=== PATIENT | female | born 1960 | race Caucasian/White ===

== ENCOUNTER → 2017-01-14 | Outpatient (CLI) | payer OTHER | LOC: M OUTALCOH 09:56 | PROVIDERS: ATTEND Psychiatry & Neurology Psychiatry | DX: F10.20 Alcohol dependence, uncomplicated (principal) ==

== ENCOUNTER 2017-02-04 08:30 | Outpatient (RCR) | payer OTHER | END 2017-02-07 | LOC: M OUTALCOH 08:30 | PROVIDERS: ATTEND Psychiatry & Neurology Psychiatry | DX: F17.200 Nicotine dependence, unspecified, uncomplicated (principal); F10.20 Alcohol dependence, uncomplicated ==

== ENCOUNTER 2017-03-04 16:00 | Outpatient (RCR) | payer OTHER | END 2017-03-09 | LOC: M OUTALCOH 16:00 | PROVIDERS: ATTEND Psychiatry & Neurology Psychiatry | DX: F17.200 Nicotine dependence, unspecified, uncomplicated (principal); F10.20 Alcohol dependence, uncomplicated ==

== ENCOUNTER 2017-04-01 16:00 | Outpatient (RCR) | payer OTHER | END 2017-04-09 | LOC: M OUTALCOH 16:00 | PROVIDERS: ATTEND Psychiatry & Neurology Psychiatry | DX: F17.200 Nicotine dependence, unspecified, uncomplicated (principal); F10.20 Alcohol dependence, uncomplicated ==

== ENCOUNTER 2017-05-07 15:00 | Outpatient (RCR) | payer OTHER | END 2017-05-09 | LOC: M OUTALCOH 15:00 | PROVIDERS: ATTEND Psychiatry & Neurology Psychiatry | DX: F17.200 Nicotine dependence, unspecified, uncomplicated (principal); F10.20 Alcohol dependence, uncomplicated ==

== ENCOUNTER → 2017-05-20 | Outpatient (REF) | payer OTHER ==
[2017-05-20 16:58] LABS: MEAN CORPUSCULAR HGB CONC 34.7 g/dl (32.0-36.5); MEAN CORPUSCULAR VOLUME 95.1 fl (80.0-96.0); WHITE BLOOD COUNT 3.7 K/mm3 (4.0-10.0)
[2017-05-20 16:59] LABS: ALBUMIN 4.3 GM/DL (3.2-5.2); ALBUMIN/GLOBULIN RATIO 1.65 (1.00-1.93); ALKALINE PHOSPHATASE 67 U/L (45-117); ALT/SGPT 24 U/L (12-78); ANION GAP 7 MEQ/L (8-16); AST/SGOT 11 U/L (15-37); BILIRUBIN,TOTAL 0.5 MG/DL (0.2-1.0); BLOOD UREA NITROGEN 18 MG/DL (7-18); CALCIUM LEVEL 9.5 MG/DL (8.5-10.1); CARBON DIOXIDE LEVEL 29 MEQ/L (21-32); CHLORIDE LEVEL 106 MEQ/L (98-107); CHOLESTEROL LEVEL 239 MG/DL (<200); CREATININE FOR GFR 0.82 MG/DL (0.55-1.02); GLOMERULAR FILTRATION RATE > 60.0 (>51); GLUCOSE, FASTING 87 MG/DL (70-105); POTASSIUM SERUM 4.3 MEQ/L (3.5-5.1); SODIUM LEVEL 142 MEQ/L (136-145); TOTAL PROTEIN 6.9 GM/DL (6.4-8.2); TRIGLYCERIDES LEVEL 108 MG/DL (<150)
== END ==
LOC: M SFHCCLAY 09:50
PROVIDERS: ATTEND Nurse Practitioner Family
DX: I10 Essential (primary) hypertension (principal); Z13.6 Encounter for screening for cardiovascular disorders; F32.9 Major depressive disorder, single episode, unspecified

== ENCOUNTER → 2017-06-09 | Outpatient (RCR) | payer OTHER | LOC: M OUTALCOH 05-14 15:00 | PROVIDERS: ATTEND Psychiatry & Neurology Psychiatry | DX: F17.200 Nicotine dependence, unspecified, uncomplicated (principal); F10.20 Alcohol dependence, uncomplicated ==

== ENCOUNTER → 2017-07-10 | Outpatient (RCR) | payer OTHER | LOC: M OUTALCOH 06-11 16:00 | PROVIDERS: ATTEND Psychiatry & Neurology Psychiatry | DX: F17.200 Nicotine dependence, unspecified, uncomplicated (principal); F10.20 Alcohol dependence, uncomplicated ==

== ENCOUNTER 2017-08-07 16:00 | Outpatient (RCR) | payer OTHER | END 2017-08-09 | LOC: M OUTALCOH 16:00 | PROVIDERS: ATTEND Psychiatry & Neurology Psychiatry | DX: F10.20 Alcohol dependence, uncomplicated (principal); F17.200 Nicotine dependence, unspecified, uncomplicated ==

== ENCOUNTER → 2017-08-18 | Outpatient (REF) | payer OTHER | LOC: M SFHCCLAY 08:06 | PROVIDERS: ATTEND Nurse Practitioner Family | DX: E78.5 Hyperlipidemia, unspecified (principal) ==

== ENCOUNTER → 2017-08-19 | Outpatient (REF) | payer OTHER ==
[2017-08-19 18:10] LABS: MEAN CORPUSCULAR HEMOGLOBIN 32.2 pg (27.0-33.0); MEAN CORPUSCULAR HGB CONC 34.3 g/dl (32.0-36.5); MEAN CORPUSCULAR VOLUME 93.7 fl (80.0-96.0); RED CELL DISTRIBUTION WIDTH 11.9 % (11.5-14.5); RETIC HEMOGLOBIN EQUIVALENT 39.3 pg (24-36); RETICULOCYTE % 1.2 % (0.5-1.5); WHITE BLOOD COUNT 4.4 10^3/uL (4.0-10.0)
[2017-08-19 19:02] LABS: FOLATE 11.4 NG/ML (>5.4)
[2017-08-19 19:21] LABS: PERCENT SATURATION 29.2 % (13.2-45.0)
== END ==
LOC: M SFHCCLAY 11:29
PROVIDERS: ATTEND Nurse Practitioner Family
DX: R53.83 Other fatigue (principal)

== ENCOUNTER → 2017-12-23 | Day surgery (SDC) | payer OTHER ==
[~2017-12-23] MED LIST: LIDOCAINE 2% INJ 100 MG/5 ML SDV (FOR ANES.) As Ordered; PHENYLephrine HCL 500 MCG/5 ML (100MCG/ML) SYRINGE (J2370) As Ordered; PROPOFOL 200 MG/20 ML VIAL As Ordered
[2017-12-23] MEDS: NS 1,000 ML IV (08:00)
== END | disposition home or self-care (01) ==
LOC: M OPP 07:38
DX: Z12.11 Encounter for screening for malignant neoplasm of colon (principal); D12.3 Benign neoplasm of transverse colon; D12.7 Benign neoplasm of rectosigmoid junction; K57.30 Diverticulosis of large intestine without perforation or abscess without bleeding; K64.8 Other hemorrhoids; R13.10 Dysphagia, unspecified; K31.89 Other diseases of stomach and duodenum; K44.9 Diaphragmatic hernia without obstruction or gangrene; K29.70 Gastritis, unspecified, without bleeding; I10 Essential (primary) hypertension; F41.9 Anxiety disorder, unspecified; Z92.21 Personal history of antineoplastic chemotherapy; Z94.84 Stem cells transplant status; Z85.72 Personal history of non-Hodgkin lymphomas; F17.210 Nicotine dependence, cigarettes, uncomplicated; Z79.899 Other long term (current) drug therapy; Z80.8 Family history of malignant neoplasm of other organs or systems
CPT/HCPCS: 45380

== ENCOUNTER → 2018-06-03 | Outpatient (REF) | payer OTHER ==
[2018-06-03 16:46] LABS: ALBUMIN 4.7 GM/DL (3.2-5.2); ALBUMIN/GLOBULIN RATIO 1.38 (1.00-1.93); ALKALINE PHOSPHATASE 89 U/L (45-117); ALT/SGPT 31 U/L (12-78); ANION GAP 7 MEQ/L (8-16); AST/SGOT 15 U/L (7-37); BILIRUBIN,TOTAL 0.6 MG/DL (0.2-1.0); BLOOD UREA NITROGEN 18 MG/DL (7-18); CALCIUM LEVEL 9.7 MG/DL (8.5-10.1); CARBON DIOXIDE LEVEL 31 MEQ/L (21-32); CHLORIDE LEVEL 105 MEQ/L (98-107); CHOLESTEROL LEVEL 287 MG/DL (<200); CHOLESTEROL RISK RATIO 3.119 (<5); CREATININE FOR GFR 0.83 MG/DL (0.55-1.30); GLOMERULAR FILTRATION RATE > 60.0 (>51); GLUCOSE, FASTING 102 MG/DL (70-100); HDL CHOLESTEROL 92 MG/DL (>40); LDL CHOLESTEROL 158.8 MG/DL (<100); NON-HDL-C 195 MG/DL; POTASSIUM SERUM 4.7 MEQ/L (3.5-5.1); SODIUM LEVEL 143 MEQ/L (136-145); TOTAL PROTEIN 8.1 GM/DL (6.4-8.2); TRIGLYCERIDES LEVEL 181 MG/DL (<150)
[2018-06-03 16:54] LABS: BASO % 0.4 % (0.0-1.0); EOS # 0.1 10^3/uL (0.0-0.50); EOS % 1.6 % (0.0-3.0); HEMATOCRIT 43.9 % (36.0-47.0); HEMOGLOBIN 14.7 g/dl (12.0-15.5); IMMATURE GRANULOCYTE % 0.4 % (0-3.0); LYMPH # 1.1 10^3/uL (1.5-4.5); LYMPH % 22.7 % (24.0-44.0); MEAN CORPUSCULAR HEMOGLOBIN 31.7 pg (27.0-33.0); MEAN CORPUSCULAR HGB CONC 33.5 g/dl (32.0-36.5); MEAN CORPUSCULAR VOLUME 94.6 fl (80.0-96.0); MONO # 0.4 10^3/uL (0.0-0.8); NEUTROPHILS # 3.4 10^3/uL (1.8-7.7); NEUTROPHILS % 67.9 % (36.0-66.0); PLATELET COUNT, AUTOMATED 198 10^3/uL (150-450); RED BLOOD COUNT 4.64 10^6/uL (4.00-5.40); RED CELL DISTRIBUTION WIDTH 11.9 % (11.5-14.5)
== END ==
LOC: M SFHCCLAY 10:36
DX: Z01.818 Encounter for other preprocedural examination (principal); E78.5 Hyperlipidemia, unspecified

== ENCOUNTER 2018-06-05 09:40 | Day surgery (SDC) | payer OTHER ==
[2018-06-05] MEDS: LR 1,000 ML IV (10:16)
[2018-06-05] MEDS ORDERED: LR 1,000 ML IV ×2 (10:30→13:00)
[2018-06-05] MEDS ORDERED: PROPOFOL 200 MG/20 ML VIAL As Ordered (11:59)
[2018-06-05] MEDS ORDERED: KETOROLAC 60 MG/2 ML VIAL (J1885) As Ordered (11:59)
[2018-06-05] MEDS ORDERED: ONDANSETRON 4MG/2ML VIAL (J2405) As Ordered (11:59)
[2018-06-05] MEDS ORDERED: MIDAZOLAM INJ 2 MG/2 ML VIAL (J2250) As Ordered (11:59)
[2018-06-05] MEDS ORDERED: fentaNYL 100 MCG/2 ML INJECTION (J3010) As Ordered (11:59)
[2018-06-05] MEDS ORDERED: KETAMINE HCL 200 MG/20 ML VIAL As Ordered (11:59)
[2018-06-05] MEDS ORDERED: LIDOCAINE 2% INJ 100 MG/5 ML SDV (FOR ANES.) As Ordered (11:59)
[2018-06-05] MEDS: BACITRACIN PWD 50,000 UNITS VIAL As Ordered (12:17)
[2018-06-05] MEDS: NEOSPORIN GU IRRIG 20 ML VIAL As Ordered (12:17)
[2018-06-05] MEDS: dexameTHASONE 4 MG/ML 1ML VIAL (J1100) As Ordered (12:18)
[2018-06-05] MEDS: LIDOCAINE 2% MDV 20 ML VIAL As Ordered (12:19)
[2018-06-05] MEDS: BUPIVACAINE HCL 0.5% 30 ML VIAL As Ordered (12:19)
[2018-06-05] MEDS ORDERED: METOCLOPRAMIDE INJ 10MG/2ML VIAL (J2765) IV (13:00)
[2018-06-05] MEDS ORDERED: ONDANSETRON 4MG/2ML VIAL (J2405) IV (13:00)
[2018-06-05] MEDS ORDERED: fentaNYL 100 MCG/2 ML INJECTION (J3010) IV (13:00)
[2018-06-05] MEDS ORDERED: PERCOCET 5MG/325MG TAB PO (13:00)
== END 2018-06-05 13:32 | disposition home or self-care (01) ==
LOC: M SDC 09:40
DX: M20.12 Hallux valgus (acquired), left foot (principal); I10 Essential (primary) hypertension; K21.9 Gastro-esophageal reflux disease without esophagitis; F32.9 Major depressive disorder, single episode, unspecified; F41.9 Anxiety disorder, unspecified; Z79.899 Other long term (current) drug therapy
CPT/HCPCS: 28296

== ENCOUNTER → 2018-08-04 | Outpatient (CLI) | payer OTHER | LOC: M RAD 08:52 | DX: I10 Essential (primary) hypertension (principal) | CPT/HCPCS: 76775 ==

== ENCOUNTER → 2018-10-08 | Outpatient (REF) | payer OTHER ==
[2018-10-08 12:01] LABS: ALBUMIN 4.2 GM/DL (3.2-5.2); ALBUMIN/GLOBULIN RATIO 1.56 (1.00-1.93); ALKALINE PHOSPHATASE 88 U/L (45-117); ALT/SGPT 39 U/L (12-78); AST/SGOT 19 U/L (7-37); BILIRUBIN,DIRECT 0.2 MG/DL (0.0-0.2); BILIRUBIN,TOTAL 0.8 MG/DL (0.2-1.0); CHOLESTEROL LEVEL 178 MG/DL (<200); CHOLESTEROL RISK RATIO 2.507 (<5); HDL CHOLESTEROL 71 MG/DL (>40); LDL CHOLESTEROL 91 MG/DL (<100); NON-HDL-C 107 MG/DL; TOTAL PROTEIN 6.9 GM/DL (6.4-8.2); TRIGLYCERIDES LEVEL 79 MG/DL (<150)
== END ==
LOC: M SFHCCLAY 07:56
DX: E78.49 Other hyperlipidemia (principal)

== ENCOUNTER → 2019-02-18 | Outpatient (REF) | payer OTHER ==
[~2019-02-18] MED LIST changes: +ATOR1TAB21 PO; +BENZ-18 PO; -LIDOCAINE 2% INJ 100 MG/5 ML SDV (FOR ANES.) As Ordered; +LISI10TA4 PO; +LOSA50TA88 PO; +MELO7.5T7 PO; +OMEP20CA3 PO; +PANT40TA3 PO; -PHENYLephrine HCL 500 MCG/5 ML (100MCG/ML) SYRINGE (J2370) As Ordered; -PROPOFOL 200 MG/20 ML VIAL As Ordered; +VENL150C43 PO; +VENL75CA2 PO; +VENL75CA47 PO
[2019-02-18 16:45] LABS: CHOLESTEROL RISK RATIO 2.915 (<5)
== END ==
LOC: M SFHCCLAY 10:13
PROVIDERS: ATTEND Nurse Practitioner Family
DX: E78.5 Hyperlipidemia, unspecified (principal)

== ENCOUNTER → 2019-05-10 | Outpatient (REF) | payer OTHER ==
[~2019-05-10] MED LIST changes: -OMEP20CA3 PO; +OMEP20CA4 PO
[2019-05-10 18:12] LABS: CHOLESTEROL RISK RATIO 2.611 (<5); FREE THYROXINE INDEX 2.6 % (1.3-4.8); THYROID STIMULATING HORMONE 0.98 uIU/ML (0.358-3.740); THYROXINE (T4) 7.2 UG/DL (4.5-12.0)
[2019-05-10 19:16] LABS: TOTAL 25(OH) VITAMIN D 30.3 NG/ML (30.0-100.0)
== END ==
LOC: M SFHCCLAY 11:45
PROVIDERS: ATTEND Nurse Practitioner Family
DX: E78.49 Other hyperlipidemia (principal); R53.83 Other fatigue

== ENCOUNTER → 2019-06-15 | Outpatient (CLI) | payer OTHER ==
[~2019-06-15] MED LIST changes: +GASTROGRAFIN SOLUTION 30ML (Q9963) As Ordered ONE; +ISOVUE-370 76% 100ML VIAL (Q9967) As Ordered ONE
--- NOTE | 2019-06-16 05:53 | REP ---
Clinical: Mantel cell lymphoma. Technique: Axial contrast enhanced images from the thoracic inlet to the upper abdomen with coronal and sagittal re-formations using 100 ml Isovue 370 intravenous contrast material. Comparison: 02/27/2015. Findings: No axillary, hilar, or mediastinal adenopathy is appreciated. Mediastinum demonstrates normal thoracic aorta, pulmonary vasculature and heart/pericardium. A few incidental calcified mediastinal lymph nodes are suggested and most consistent with post-therapeutic changes. Gastroesophageal hiatal hernia noted. The bilateral lung olson are well-aerated. Few small 2 mm nodular densities are identified in the left lower lobe which appear stable compared with 2014 suggesting chronic change. Minimal bilateral posterior basilar dependent changes noted. No consolidation, further significant nodule or mass lesion appreciated. No pleural effusion. No pneumothorax. Tracheobronchial tree is patent. Surrounding musculoskeletal structures are intact without focal osseous abnormality. Limited upper abdomen demonstrates normal bilateral adrenal glands and evidence for cholelithiasis. Impression: 1. No evidence for adenopathy. 2. Subtle small 2 mm nodular densities in the left lower lobe remain stable compared with 2014. No acute mediastinal or pleuroparenchymal process appreciated. Electronically Signed by Ajith Perea MD 06/16/2019 05:44 A
--- NOTE | 2019-06-16 06:01 | REP ---
Clinical: Mantel cell lymphoma. Technique: Axial contrast enhanced images from the lung bases to the pubic symphysis using oral (per protocol) and 100 ml Isovue 370 intravenous contrast material with delayed images of the abdomen as well as coronal and sagittal re-formations. Findings: Liver, spleen, pancreas, bilateral adrenal glands and kidneys are normal. Small splenic calcifications suggest prior granulomas disease or changes related to prior therapy. Cholelithiasis noted without evidence for acute cholecystitis. The enteric system is without obstruction or acute inflammatory process. Diverticulosis noted without acute diverticulitis. Pelvis demonstrates nodular enlarged presumed myomatous uterus. Bladder is normal. No ascites. No free air. No obvious adenopathy. Abdominal aorta and vasculature normal. Musculoskeletal structures demonstrate age-related changes without focal aggressive abnormality. Impression: 1. Cholelithiasis. 2. Diverticulosis without acute diverticulitis. 3. Enlarged uterus with multiple nodular masses likely representing myomatous changes may warrant pelvic ultrasound follow-up. Electronically Signed by Ajith Perea MD 06/16/2019 05:52 A
== END ==
LOC: M RAD 15:43
PROVIDERS: ATTEND Internal Medicine Hematology & Oncology
DX: C83.10 Mantle cell lymphoma, unspecified site (principal); K80.20 Calculus of gallbladder without cholecystitis without obstruction; K57.30 Diverticulosis of large intestine without perforation or abscess without bleeding; R93.5 Abnormal findings on diagnostic imaging of other abdominal regions, including retroperitoneum; R91.1 Solitary pulmonary nodule
CPT/HCPCS: 71260; 74177; Q9963; Q9967

== ENCOUNTER → 2020-08-29 | Outpatient (REF) | payer OTHER ==
[~2020-08-29] MED LIST changes: -GASTROGRAFIN SOLUTION 30ML (Q9963) As Ordered ONE; -ISOVUE-370 76% 100ML VIAL (Q9967) As Ordered ONE; +OMEP1CAP73 PO; -OMEP20CA4 PO; +PANT40TA29 PO; -PANT40TA3 PO
[2020-08-29 16:21] LABS: HEMATOCRIT 41.1 % (36.0-47.0); HEMOGLOBIN 13.3 g/dl (12.0-15.5); MEAN CORPUSCULAR HEMOGLOBIN 29.8 pg (27.0-33.0); MEAN CORPUSCULAR HGB CONC 32.4 g/dl (32.0-36.5); MEAN CORPUSCULAR VOLUME 92.2 fl (80.0-96.0); PLATELET COUNT, AUTOMATED 119 10^3/uL (150-450); RED BLOOD COUNT 4.46 10^6/uL (4.00-5.40); WHITE BLOOD COUNT 5.6 10^3/uL (4.0-10.0)
[2020-08-29 16:50] LABS: ALBUMIN 4.5 GM/DL (3.2-5.2); BILIRUBIN,TOTAL 0.4 MG/DL (0.2-1.0); CALCIUM LEVEL 9.3 MG/DL (8.8-10.2); CHOLESTEROL RISK RATIO 4.771 (<5); CREATININE FOR GFR 1.01 MG/DL (0.55-1.30); GLOMERULAR FILTRATION RATE 59.5 (>45); POTASSIUM SERUM 4.4 MEQ/L (3.5-5.1); TOTAL PROTEIN 7.2 GM/DL (6.4-8.2)
[2020-08-29 16:59] LABS: TOTAL 25(OH) VITAMIN D 37.9 NG/ML (30.0-100.0)
== END ==
LOC: M SFHCCLAY 10:06
PROVIDERS: ATTEND Nurse Practitioner Family
DX: K29.70 Gastritis, unspecified, without bleeding (principal); I10 Essential (primary) hypertension; E78.5 Hyperlipidemia, unspecified; E55.9 Vitamin D deficiency, unspecified

== ENCOUNTER → 2021-03-09 | Outpatient (REF) | payer OTHER ==
[~2021-03-09] MED LIST changes: +LISI10TA22 PO; -LISI10TA4 PO
== END ==
LOC: M LAB REF 13:21
PROVIDERS: ATTEND Ophthalmology
DX: C44.1292 Squamous cell carcinoma of skin of left lower eyelid, including canthus (principal)

== ENCOUNTER → 2022-11-14 | Outpatient (CLI) | payer OTHER ==
[~2022-11-14] MED LIST changes: +LOSA50TA28 PO; -LOSA50TA88 PO
== END ==
LOC: M SOG 08:24
PROVIDERS: ATTEND Physician Assistant
DX: M79.646 Pain in unspecified finger(s) (principal); M18.11 Unilateral primary osteoarthritis of first carpometacarpal joint, right hand; M19.041 Primary osteoarthritis, right hand

== ENCOUNTER 2022-12-30 04:32 | Inpatient (IN) | payer OTHER ==
[~2022-12-30] VITALS: Ht 167.6 cm; Wt 58.2 kg
[2022-12-30 05:17] LABS: HEMATOCRIT 27.3 % (36.0-47.0); HEMOGLOBIN 8.2 g/dl (12.0-15.5); MEAN CORPUSCULAR HEMOGLOBIN 25.1 pg (27.0-33.0); MEAN CORPUSCULAR VOLUME 83.5 fl (80.0-96.0); PLATELET COUNT, AUTOMATED 106 10^3/uL (150-450); RED BLOOD COUNT 3.27 10^6/uL (4.00-5.40)
[2022-12-30 05:25] LABS: ETHYL ALCOHOL (ETHANOL) 0.254 % (0.000-0.010)
[2022-12-30 05:27] LABS: SALICYLATE LEVEL < 3.0 MG/DL (<30)
[2022-12-30 05:31] LABS: ACETAMINOPHEN LEVEL < 2.0 UG/ML (10.0-20.0); ALBUMIN 3.7 G/DL (3.2-5.2); ALKALINE PHOSPHATASE 91 U/L (46-116); ALT/SGPT 22 U/L (7.0-40); AST/SGOT 26 U/L (<34); BILIRUBIN,DIRECT < 0.1 MG/DL (<0.4); BILIRUBIN,TOTAL 0.2 MG/DL (0.3-1.2); BLOOD UREA NITROGEN 16 MG/DL (9-23); CALCIUM LEVEL 8.9 MG/DL (8.3-10.6); CARBON DIOXIDE LEVEL 27 MMOL/L (20-31); CHLORIDE LEVEL 109 MMOL/L (98-107); CREATININE FOR GFR 0.75 MG/DL (0.55-1.30); GLOMERULAR FILTRATION RATE > 60.0 (>45); GLUCOSE, FASTING 103 MG/DL (74-106); POTASSIUM SERUM 3.7 MMOL/L (3.5-5.1); SODIUM LEVEL 144 MMOL/L (136-145); THYROID STIMULATING HORMONE 0.803 uIU/ML (0.55-4.78)
[2022-12-30 05:36] LABS: BARBITURATES URINE NEGATIVE (NEGATIVE); BENZODIAZEPINES URINE NEGATIVE (NEGATIVE); CANNABINOIDS URINE NEGATIVE (NEGATIVE); METHADONE URINE NEGATIVE (NEGATIVE); OPIATES URINE NEGATIVE (NEGATIVE); PHENCYCLIDINE URINE NEGATIVE (NEGATIVE)
[2022-12-30 05:38] LABS: AMPHETAMINES LEVEL URINE POSITIVE (NEGATIVE); COCAINE METABOLITE URINE POSITIVE (NEGATIVE); WHITE BLOOD COUNT 45.9 10^3/uL (4.0-10.0)
[2022-12-30] MEDS ORDERED: NS 1,000 ML IV ONE (05:55)
[2022-12-30] MEDS ORDERED: LIDOCAINE W/EPINEPHRINE 1% 20ML VIAL As Ordered ONE (06:16)
[2022-12-30 06:48] LABS: INR 0.88; PROTHROMBIN TIME 12.1 SECONDS (12.5-14.5)
[2022-12-30 06:49] LABS: PARTIAL THROMBOPLASTIN TIME 25.6 SECONDS (24.8-34.2)
[2022-12-30 07:24] LABS: ATYPICAL LYMPH 13 % (0-5); LYMPHOCYTES 83 % (16-44); METAMYELOCYTES 1 % (0-0); MONOCYTES 1 % (0-5); NEUTROPHILS 2 % (28-66)
[2022-12-30 07:25] LABS: ANISOCYTOSIS 2+; PLATELET ESTIMATE DECREASED (NORMAL); POIKILOCYTOSIS 1+
[2022-12-30 07:45] LABS: APPEARANCE, URINE CLEAR (CLEAR); BILIRUBIN, URINE AUTO NEGATIVE (NEGATIVE); BLOOD, URINE BLOOD NEGATIVE (NEGATIVE); COLOR, URINE COLORLESS (YELLOW); GLUCOSE, URINE (UA) AUTO NEGATIVE (NEGATIVE); KETONE, URINE AUTO NEGATIVE (NEGATIVE); LEUKOCYTE ESTERASE, URINE AUTO NEGATIVE (NEGATIVE); NITRITE, URINE AUTO NEGATIVE (NEGATIVE); PROTEIN, URINE AUTO NEGATIVE (NEGATIVE); SPECIFIC GRAVITY URINE AUTO 1.004 (1.002-1.035); UROBILINOGEN, URINE AUTO 0.2 mg/dL (0.0-2.0)
[2022-12-30 07:46] LABS: BACTERIA, URINE AUTO NEGATIVE (NEGATIVE); RBC, URINE AUTO 0 /HPF (0-3); SQUAMOUS EPITHELIAL CELL UR AU 0 /HPF (0-6); WBC, URINE AUTO 0 /HPF (0-3)
[2022-12-30] MEDS ORDERED: ACET500T15 PO (08:17)
[2022-12-30] MEDS ORDERED: HOME MED LIST COMPLETE! XX SCH (08:20)
[2022-12-30] MEDS ORDERED: FOLIC ACID 1MG TAB PO SCH (09:00)
[2022-12-30] MEDS ORDERED: MULTIVITAMINS/MINERALS THERAP 1 TAB PO SCH (09:00)
[2022-12-30] MEDS ORDERED: LORazepam 2 MG TAB PO PRN ×2 (15:30→18:10)
[2022-12-30] MEDS ORDERED: THIAMINE 100 MG TAB PO SCH (16:00)
[2022-12-30] MEDS ORDERED: MAALOX 30 ML SUSP *UDC PO PRN (18:10)
[2022-12-30] MEDS ORDERED: MOM 30ML SUSPENSION UDC PO PRN (18:10)
[2022-12-30] MEDS ORDERED: ACETAMINOPHEN TAB 650MG DOSE (2X325MG) PO PRN (18:10)
[2022-12-30] MEDS ORDERED: traZODone 50 MG TAB PO PRN (18:10)
[2022-12-30] MEDS: ENOXAPARIN 40MG/0.4ML SYRINGE (J1650 PER 10MG) SC SCH (20:59)
[2022-12-30] MEDS: THIAMINE 100 MG TAB PO SCH (20:59)
[2022-12-30 21:39] VITALS: BP 141/82
[2022-12-30 22:24] VITALS: BP 141/82
[2022-12-31 06:18] VITALS: BP 151/85
[2022-12-31 08:00] LABS: HEMATOCRIT 29.2 % (36.0-47.0); HEMOGLOBIN 8.7 g/dl (12.0-15.5); MEAN CORPUSCULAR HEMOGLOBIN 24.6 pg (27.0-33.0); MEAN CORPUSCULAR HGB CONC 29.8 g/dl (32.0-36.5); MEAN CORPUSCULAR VOLUME 82.7 fl (80.0-96.0); RED BLOOD COUNT 3.53 10^6/uL (4.00-5.40)
[2022-12-31 08:09] LABS: PLATELET COUNT, AUTOMATED 94 10^3/uL (150-450)
[2022-12-31 08:11] LABS: WHITE BLOOD COUNT 38.1 10^3/uL (4.0-10.0)
[2022-12-31 08:35] VITALS: BP 151/85
[2022-12-31] MEDS: NICOTINE 21MG/24HR 1 EA TRANSDERMAL TD SCH (09:00)
[2022-12-31] MEDS ORDERED: FLUBLOK(EGG FREE)(QUAD)INFLUENZA VACC 0.5ML SYRINGE 18YRS & OLDER IM.IMMUN ONE (09:00)
[2022-12-31] MEDS: FOLIC ACID 1MG TAB PO SCH (09:26)
[2022-12-31] MEDS: MULTIVITAMINS/MINERALS THERAP 1 TAB PO SCH (09:27)
[2022-12-31] MEDS: SERTRALINE HCL 50 MG TAB PO SCH (09:27)
[2022-12-31] MEDS: THIAMINE 100 MG TAB PO SCH ×2 (09:27→21:13)
[2022-12-31 09:35] LABS: ATYPICAL LYMPH 1 % (0-5); LYMPHOCYTES 91 % (16-44); NEUTROPHILS 8 % (28-66); PLATELET ESTIMATE DECREASED (NORMAL)
[2022-12-31 09:36] LABS: ANISOCYTOSIS 1+; HYPOCHROMASIA 1+; MICROCYTOSIS 1+
[2022-12-31 16:37] VITALS: BP 124/99
[2022-12-31 18:07] VITALS: BP 124/99
[2022-12-31] MEDS: ENOXAPARIN 40MG/0.4ML SYRINGE (J1650 PER 10MG) SC SCH (21:00)
[2023-01-01 00:01] VITALS: BP 150/92
[2023-01-01 06:26] VITALS: BP 150/92
[2023-01-01] MEDS: NICOTINE 21MG/24HR 1 EA TRANSDERMAL TD SCH (09:00)
[2023-01-01] MEDS: MULTIVITAMINS/MINERALS THERAP 1 TAB PO SCH (09:28)
[2023-01-01] MEDS: THIAMINE 100 MG TAB PO SCH ×2 (09:29→20:32)
[2023-01-01] MEDS: SERTRALINE HCL 50 MG TAB PO SCH (09:29)
[2023-01-01] MEDS: FOLIC ACID 1MG TAB PO SCH (09:29)
[2023-01-01 13:49] LABS: LDH LACTATE DEHYDROGENASE 202 U/L (120-246)
[2023-01-01 17:56] VITALS: BP 151/91
[2023-01-01 18:46] LABS: HEPATITIS B SURFACE ANTIBODY NEGATIVE (POSITIVE)
[2023-01-01 18:58] LABS: HEPATITIS B SURFACE ANTIGEN NEGATIVE (NEGATIVE)
[2023-01-01 19:18] LABS: HEPATITIS B CORE ANTIBODY IGM NEGATIVE (NEGATIVE)
[2023-01-01] MEDS: ENOXAPARIN 40MG/0.4ML SYRINGE (J1650 PER 10MG) SC SCH (20:32)
[2023-01-02 06:28] VITALS: BP 140/81
[2023-01-02 07:23] LABS: HEMATOCRIT 29.2 % (36.0-47.0); HEMOGLOBIN 8.6 g/dl (12.0-15.5); MEAN CORPUSCULAR HEMOGLOBIN 24.5 pg (27.0-33.0); MEAN CORPUSCULAR HGB CONC 29.5 g/dl (32.0-36.5); MEAN CORPUSCULAR VOLUME 83.2 fl (80.0-96.0); PLATELET COUNT, AUTOMATED 104 10^3/uL (150-450); RED BLOOD COUNT 3.51 10^6/uL (4.00-5.40)
[2023-01-02 07:40] LABS: WHITE BLOOD COUNT 43.7 10^3/uL (4.0-10.0)
[2023-01-02] MEDS: THIAMINE 100 MG TAB PO SCH (08:16)
[2023-01-02] MEDS: MULTIVITAMINS/MINERALS THERAP 1 TAB PO SCH (08:16)
[2023-01-02] MEDS: NICOTINE 21MG/24HR 1 EA TRANSDERMAL TD SCH (08:16)
[2023-01-02] MEDS: FOLIC ACID 1MG TAB PO SCH (08:16)
[2023-01-02] MEDS: SERTRALINE HCL 50 MG TAB PO SCH (08:16)
[2023-01-02] MEDS ORDERED: FOLI1TAB11 PO (10:41)
[2023-01-02] MEDS ORDERED: SERT50TA29 PO (10:41)
[2023-01-02] MEDS ORDERED: VITMTA PO (10:41)
[2023-01-02] MEDS ORDERED: HYDR-643 PO (10:41)
[2023-01-02] MEDS ORDERED: LOVE1INJ SC (10:41)
[2023-01-03 07:08] LABS: BETA 2 MICROGLOBULIN 2.6 mg/L (0.6-2.4)
== END 2023-01-02 19:30 | disposition home or self-care (01) | DRG 754 ==
LOC: EDBD 04:32 → M ED 04:32 → M ED INP 18:06 → M PSY 21:32
PROVIDERS: ADMIT Psychiatry & Neurology Psychiatry; ATTEND Psychiatry & Neurology Psychiatry
DX: F32.A Depression, unspecified (principal); Z94.84 Stem cells transplant status; C83.10 Mantle cell lymphoma, unspecified site; F43.21 Adjustment disorder with depressed mood; Z92.21 Personal history of antineoplastic chemotherapy; D72.829 Elevated white blood cell count, unspecified; D64.9 Anemia, unspecified; F10.20 Alcohol dependence, uncomplicated

== ENCOUNTER → 2023-01-08 | Outpatient (REF) | payer OTHER ==
[~2023-01-08] MED LIST changes: +ACET500T15 PO; +FOLI1TAB11 PO; +HYDR-643 PO; +LOVE1INJ SC; +SERT50TA29 PO; +VITMTA PO
[2023-01-08 17:33] LABS: HEMATOCRIT 30.1 % (36.0-47.0); HEMOGLOBIN 8.8 g/dl (12.0-15.5); MEAN CORPUSCULAR HEMOGLOBIN 24.8 pg (27.0-33.0); MEAN CORPUSCULAR HGB CONC 29.2 g/dl (32.0-36.5); MEAN CORPUSCULAR VOLUME 84.8 fl (80.0-96.0); PLATELET COUNT, AUTOMATED 127 10^3/uL (150-450); RED BLOOD COUNT 3.55 10^6/uL (4.00-5.40)
[2023-01-08 18:06] LABS: WHITE BLOOD COUNT 47.4 10^3/uL (4.0-10.0)
[2023-01-08 19:15] LABS: ATYPICAL LYMPH 6 % (0-5); LYMPHOCYTES 86 % (16-44); NEUTROPHILS 6 % (28-66); PLATELET ESTIMATE DECREASED (NORMAL)
[2023-01-08 19:16] LABS: ANISOCYTOSIS 1+; POIKILOCYTOSIS 1+
== END ==
LOC: M SFHCCLAY 14:57
PROVIDERS: ATTEND Nurse Practitioner Family
DX: D72.829 Elevated white blood cell count, unspecified (principal)

== ENCOUNTER → 2023-02-03 | Outpatient (CLI) | payer OTHER ==
[~2023-02-03] MED LIST changes: +ACAL100T PO; +GASTROGRAFIN SOLUTION 30ML As Ordered ONE; +ISOVUE-370 76% 100ML VIAL As Ordered ONE; +PANT20TA6; +SERT-141 PO
== END ==
LOC: M RAD 12:58
PROVIDERS: ATTEND Specialist
DX: C83.10 Mantle cell lymphoma, unspecified site (principal); K80.20 Calculus of gallbladder without cholecystitis without obstruction; R16.1 Splenomegaly, not elsewhere classified; K44.9 Diaphragmatic hernia without obstruction or gangrene
CPT/HCPCS: 70491; 71260; 74177; Q9963; Q9967

== ENCOUNTER → 2023-02-06 | Outpatient (CLI) | payer OTHER ==
[~2023-02-06] MED LIST changes: -GASTROGRAFIN SOLUTION 30ML As Ordered ONE; -ISOVUE-370 76% 100ML VIAL As Ordered ONE; +LIDOCAINE 1% MDV 20ML VIAL As Ordered ONE
[2023-02-06 08:46] LABS: HEMATOCRIT 29.1 % (36.0-47.0); HEMOGLOBIN 8.4 g/dl (12.0-15.5); MEAN CORPUSCULAR HEMOGLOBIN 23.5 pg (27.0-33.0); MEAN CORPUSCULAR HGB CONC 28.9 g/dl (32.0-36.5); MEAN CORPUSCULAR VOLUME 81.5 fl (80.0-96.0); PLATELET COUNT, AUTOMATED 114 10^3/uL (150-450); RED BLOOD COUNT 3.57 10^6/uL (4.00-5.40)
[2023-02-06 09:13] VITALS: BP 135/83
[2023-02-06 09:28] LABS: WHITE BLOOD COUNT 48.2 10^3/uL (4.0-10.0)
[2023-02-06 09:34] LABS: ATYPICAL LYMPH 28 % (0-5); LYMPHOCYTES 66 % (16-44); MONOCYTES 1 % (0-5); NEUTROPHILS 5 % (28-66)
[2023-02-06 09:35] LABS: ANISOCYTOSIS 1+
[2023-02-06 09:36] LABS: HYPOCHROMASIA 2+
[2023-02-06 09:37] LABS: PLATELET ESTIMATE NORMAL (NORMAL)
== END ==
LOC: M IRPRO 08:15
PROVIDERS: ATTEND Specialist
DX: C83.10 Mantle cell lymphoma, unspecified site (principal)

== ENCOUNTER → 2024-02-20 | Outpatient (CLI) | payer OTHER ==
[~2024-02-20] MED LIST changes: +ACYC1TAB PO; +ALLO100T; +ALLO100T PO; +BACT800T5 PO; +CEPH500C PO; +GABA-1171 PO; +GASTROGRAFIN SOLUTION 30ML As Ordered ONE; +ISOVUE-370 76% 100ML VIAL As Ordered ONE; -LIDOCAINE 1% MDV 20ML VIAL As Ordered ONE; +ONDA-84 PO; +PANT20TA6 PO; +PROC10TA5 PO
== END ==
LOC: M RAD 14:50
PROVIDERS: ATTEND Nurse Practitioner
DX: C83.10 Mantle cell lymphoma, unspecified site (principal); R16.1 Splenomegaly, not elsewhere classified; K80.20 Calculus of gallbladder without cholecystitis without obstruction; K44.9 Diaphragmatic hernia without obstruction or gangrene
CPT/HCPCS: 70491; 71260; 74177; Q9963; Q9967

== ENCOUNTER 2024-11-24 17:16 | Inpatient (IN) | payer OTHER ==
[~2024-11-24] VITALS: Ht 160 cm; Wt 66.5 kg
[~2024-11-24 17:16] MED LIST changes: -GASTROGRAFIN SOLUTION 30ML As Ordered ONE; -ISOVUE-370 76% 100ML VIAL As Ordered ONE; +POTA-298 PO
[2024-11-24 18:05] LABS: BASO % 0.1 % (0.0-1.0); HEMATOCRIT 35.3 % (36.0-47.0); HEMOGLOBIN 11.7 g/dl (12.0-15.5); LYMPH # 1.1 10^3/uL (1.5-5.0); LYMPH % 7.4 % (24.0-44.0); MEAN CORPUSCULAR HEMOGLOBIN 28.7 pg (27.0-33.0); MEAN CORPUSCULAR HGB CONC 33.1 g/dl (32.0-36.5); MEAN CORPUSCULAR VOLUME 86.5 fl (80.0-96.0); MONO % 6.7 % (2.0-8.0); NEUTROPHILS # 12.3 10^3/uL (1.5-8.5); NEUTROPHILS % 85.2 % (36.0-66.0); PLATELET COUNT, AUTOMATED 293 10^3/uL (150-450); RED BLOOD COUNT 4.08 10^6/uL (4.00-5.40); WHITE BLOOD COUNT 14.4 10^3/uL (4.0-10.0)
[2024-11-24 18:25] VITALS: O2SAT 98
[2024-11-24] MEDS: IPRATROPIUM 0.5MG/ALBUTEROL 2.5MG INH SOL UD 3ML (DUONEB) NEB SCH (18:27)
[2024-11-24] MEDS: dexAMETHasone 20MG/5ML VIAL IV ONE (18:27)
[2024-11-24 18:32] LABS: ETHYL ALCOHOL (ETHANOL) < 0.003 % (0.000-0.010)
[2024-11-24 18:38] LABS: ALBUMIN 3.4 G/DL (3.2-5.2); ALKALINE PHOSPHATASE 142 U/L (35-104); ALT/SGPT 27 U/L (7.0-40); AST/SGOT 46 U/L (<34); BILIRUBIN,DIRECT 0.1 MG/DL (<0.4); BILIRUBIN,TOTAL 0.5 MG/DL (0.3-1.2); BLOOD UREA NITROGEN 11 MG/DL (9-23); CALCIUM LEVEL 9.6 MG/DL (8.3-10.6); CARBON DIOXIDE LEVEL 26 MMOL/L (20-31); CHLORIDE LEVEL 101 MMOL/L (98-107); CK-MB VALUE MASS 1.4 NG/ML (<3.6); CPK CREATINE PHOSPHOKINASE 435 U/L (34-145); CREATININE FOR GFR 0.67 MG/DL (0.55-1.30); GLOMERULAR FILTRATION RATE > 60.0 (>45); GLUCOSE, FASTING 98 MG/DL (74-106); MB/CK RELATIVE INDEX 0.32 (< OR =4); POTASSIUM SERUM 4.7 MMOL/L (3.5-5.1); SODIUM LEVEL 138 MMOL/L (136-145); THYROID STIMULATING HORMONE 0.547 uIU/ML (0.55-4.78); TOTAL PROTEIN 6.9 G/DL (5.7-8.2)
[2024-11-24] MEDS: COMBIVENT RESPIMAT 100-20MCG INHALER 4GM INH SCH (19:25)
[2024-11-24 20:34] LABS: AMPHETAMINES LEVEL URINE NEGATIVE (NEGATIVE); BARBITURATES URINE NEGATIVE (NEGATIVE); BENZODIAZEPINES URINE NEGATIVE (NEGATIVE); CANNABINOIDS URINE NEGATIVE (NEGATIVE); COCAINE METABOLITE URINE NEGATIVE (NEGATIVE); METHADONE URINE NEGATIVE (NEGATIVE); OPIATES URINE NEGATIVE (NEGATIVE); PHENCYCLIDINE URINE NEGATIVE (NEGATIVE)
[2024-11-24] MEDS ORDERED: PANT-23 PO (22:47)
[2024-11-24] MEDS ORDERED: SERT50TA29 PO (22:47)
[2024-11-24 22:50] LABS: APPEARANCE, URINE CLEAR (CLEAR); BACTERIA, URINE AUTO NEGATIVE (NEGATIVE); BILIRUBIN, URINE AUTO NEGATIVE (NEGATIVE); BLOOD, URINE BLOOD NEGATIVE (NEGATIVE); COLOR, URINE YELLOW (YELLOW); GLUCOSE, URINE (UA) AUTO NEGATIVE (NEGATIVE); KETONE, URINE AUTO TRACE mg/dL (NEGATIVE); LEUKOCYTE ESTERASE, URINE AUTO NEGATIVE (NEGATIVE); MUCUS, URINE SMALL (NEGATIVE); NITRITE, URINE AUTO NEGATIVE (NEGATIVE); PROTEIN, URINE AUTO NEGATIVE (NEGATIVE); RBC, URINE AUTO 1 /HPF (0-3); SPECIFIC GRAVITY URINE AUTO 1.011 (1.002-1.035); SQUAMOUS EPITHELIAL CELL UR AU 1 /HPF (0-6); UROBILINOGEN, URINE AUTO 0.2 mg/dL (0.0-2.0); WBC, URINE AUTO 2 /HPF (0-3)
[2024-11-24] MEDS ORDERED: HOME MED LIST COMPLETE! XX SCH (22:50)
[2024-11-24 23:15] LABS: PROCALCITONIN 0.54 ng/ml
[2024-11-24] MEDS: DOXYCYCLINE HYCLATE 100 MG in DEXTROSE 5% (D5W) MINI-BAG PLU 100 ML IV SCH (23:35)
[2024-11-25] MEDS: cefTRIAXone SOD 1 GM in DEXTROSE 5% (D5W) ADV/MINI-BAG 50 ML IV SCH (00:42)
[2024-11-25] MEDS: REMDESIVIR 200 MG in NS 250 ML IV ONE (01:14)
[2024-11-25] MEDS ORDERED: CEPACOL LOZENGE PO PRN (05:50)
[2024-11-25] MEDS ORDERED: DEXTROMETHORPHAN 60MG/10ML SUSP 90ML BTL(DELSYM) PO PRN (05:50)
[2024-11-25 06:56] LABS: VENOUS BASE EXCESS -1.8 (-2.0-2.0); VENOUS HCO3 23.1 MMOL/L (23.0-27.0); VENOUS O2 SATURATION 93.9 % (60.0-80.0); VENOUS PARTIAL PRESSURE CO2 39.8 mmHg (38.0-50.0); VENOUS PARTIAL PRESSURE O2 72.6 mmHg (30.0-50.0); VENOUS PH 7.381 UNITS (7.330-7.430); VENOUS STANDARD HCO3 22.9 MMOL/L; VENOUS TOTAL CO2 24.3 MMOL/L (24.0-28.0)
[2024-11-25 07:04] LABS: HEMATOCRIT 33.5 % (36.0-47.0); MEAN CORPUSCULAR HEMOGLOBIN 28.3 pg (27.0-33.0); MEAN CORPUSCULAR HGB CONC 32.8 g/dl (32.0-36.5); MEAN CORPUSCULAR VOLUME 86.1 fl (80.0-96.0); PLATELET COUNT, AUTOMATED 276 10^3/uL (150-450); RED BLOOD COUNT 3.89 10^6/uL (4.00-5.40); WHITE BLOOD COUNT 10.5 10^3/uL (4.0-10.0)
[2024-11-25 08:12] LABS: ALBUMIN 3.2 G/DL (3.2-5.2); ALKALINE PHOSPHATASE 132 U/L (35-104); ALT/SGPT 22 U/L (7.0-40); AST/SGOT 16 U/L (<34); BILIRUBIN,TOTAL 0.2 MG/DL (0.3-1.2); BLOOD UREA NITROGEN 15 MG/DL (9-23); CARBON DIOXIDE LEVEL 28 MMOL/L (20-31); CHLORIDE LEVEL 105 MMOL/L (98-107); CREATININE FOR GFR 0.64 MG/DL (0.55-1.30); GLOMERULAR FILTRATION RATE > 60.0 (>45); GLUCOSE, FASTING 148 MG/DL (74-106); POTASSIUM SERUM 3.8 MMOL/L (3.5-5.1); SODIUM LEVEL 143 MMOL/L (136-145); TOTAL PROTEIN 6.3 G/DL (5.7-8.2)
[2024-11-25] MEDS: PANTOPRAZOLE 40MG TAB (PROTONIX) PO SCH (08:23)
[2024-11-25] MEDS: SERTRALINE HCL 50 MG TAB PO SCH (08:24)
[2024-11-25] MEDS: ENOXAPARIN 40MG/0.4ML SYRINGE (J1650 PER 10MG) SC SCH (08:24)
[2024-11-25] MEDS: ALBUTEROL SULFATE 2.5MG/0.5ML INH NEB SOLN NEB SCH (10:33)
[2024-11-25] MEDS ORDERED: COMBAER6 INH (11:04)
[2024-11-25] MEDS ORDERED: DEXA6TAB PO (11:04)
[2024-11-25] MEDS ORDERED: DOXY100T27 PO (11:04)
[2024-11-25] MEDS ORDERED: CEFD1CAP9 PO (11:04)
[2024-11-25] MEDS ORDERED: MUCI1TAB18 PO (11:04)
[2024-11-25] MEDS: ACETAMINOPHEN 500 MG TAB PO ONE (12:00)
[2024-11-25 12:27] VITALS: BP 105/56; TEMP 99; O2SAT 93
[2024-11-25] MEDS ORDERED: COMBIVENT RESPIMAT 100-20MCG INHALER 4GM INH SCH (14:00)
[2024-11-25] MEDS ORDERED: REMDESIVIR 100 MG in NS 100 ML IV SCH (22:00)
== END 2024-11-25 12:36 | disposition home or self-care (01) | DRG 137 ==
LOC: M ED 17:16 → EDBD 17:16 → M ED INP 22:31
PROVIDERS: ADMIT Family Medicine; ATTEND Internal Medicine
DX: U07.1 COVID-19 (principal); J96.01 Acute respiratory failure with hypoxia; Z94.84 Stem cells transplant status; C83.10 Mantle cell lymphoma, unspecified site; E11.9 Type 2 diabetes mellitus without complications; F32.A Depression, unspecified; I10 Essential (primary) hypertension; J40 Bronchitis, not specified as acute or chronic; K21.9 Gastro-esophageal reflux disease without esophagitis; Z79.899 Other long term (current) drug therapy; Z92.21 Personal history of antineoplastic chemotherapy

== ENCOUNTER → 2025-01-21 | Outpatient (REF) | payer OTHER ==
[~2025-01-21] MED LIST changes: +CEFD1CAP9 PO; +COMBAER6 INH; +DEXA6TAB PO; +DOXY100T27 PO; +MUCI1TAB18 PO; +PANT-23 PO
[2025-01-21 17:35] LABS: BASO % 0.4 % (0.0-1.0); EOS # 0.1 10^3/uL (0.0-0.5); EOS % 0.9 % (0.0-3.0); HEMATOCRIT 32.2 % (36.0-47.0); HEMOGLOBIN 9.8 g/dl (12.0-15.5); LYMPH # 1.3 10^3/uL (1.5-5.0); LYMPH % 24.8 % (24.0-44.0); MEAN CORPUSCULAR HEMOGLOBIN 25.5 pg (27.0-33.0); MEAN CORPUSCULAR HGB CONC 30.4 g/dl (32.0-36.5); MEAN CORPUSCULAR VOLUME 83.6 fl (80.0-96.0); MONO # 0.7 10^3/uL (0.0-0.8); MONO % 12.4 % (2.0-8.0); NEUTROPHILS # 3.3 10^3/uL (1.5-8.5); NEUTROPHILS % 61.3 % (36.0-66.0); PLATELET COUNT, AUTOMATED 263 10^3/uL (150-450); RED BLOOD COUNT 3.85 10^6/uL (4.00-5.40); WHITE BLOOD COUNT 5.3 10^3/uL (4.0-10.0)
[2025-01-21 17:42] LABS: ALBUMIN 3.7 G/DL (3.2-5.2); ALKALINE PHOSPHATASE 101 U/L (35-104); ALT/SGPT 18 U/L (7.0-40); AST/SGOT 12 U/L (<34); BILIRUBIN,TOTAL 0.4 MG/DL (0.3-1.2); BLOOD UREA NITROGEN 15 MG/DL (9-23); CARBON DIOXIDE LEVEL 29 MMOL/L (20-31); CHLORIDE LEVEL 106 MMOL/L (98-107); CHOLESTEROL LEVEL 173 MG/DL (<200); CHOLESTEROL RISK RATIO 2.13 (<5); CREATININE FOR GFR 0.81 MG/DL (0.55-1.30); GLOMERULAR FILTRATION RATE > 60.0 (>45); GLUCOSE, FASTING 112 MG/DL (74-106); HDL CHOLESTEROL 81.1 MG/DL (>40); LDL CHOLESTEROL 68.7 MG/DL (<100); NON-HDL-C 91.9 MG/DL; POTASSIUM SERUM 3.6 MMOL/L (3.5-5.1); SODIUM LEVEL 144 MMOL/L (136-145); TOTAL PROTEIN 6.1 G/DL (5.7-8.2); TRIGLYCERIDES LEVEL 116 MG/DL (<150)
[2025-01-21 17:47] LABS: FREE T4 1.29 NG/DL (0.89-1.76); THYROID STIMULATING HORMONE 0.879 uIU/ML (0.55-4.78)
[2025-01-21 18:17] LABS: HEMOGLOBIN A1c 4.7 % (4.0-6.0)
[2025-01-25 17:24] LABS: TOTAL IRON BINDING CAPACITY 433 UG/DL (250-425)
[2025-01-25 17:25] LABS: IRON (FE) 13 UG/DL (50-170)
[2025-01-25 17:27] LABS: FERRITIN 5.1 NG/ML (7.3-270.7); VITAMIN B12 LEVEL 568 PG/ML (211-911)
== END ==
LOC: M SFHCCLAY 14:35
PROVIDERS: ATTEND Nurse Practitioner Family
DX: R30.0 Dysuria (principal); F32.A Depression, unspecified; C85.90 Non-Hodgkin lymphoma, unspecified, unspecified site; K21.9 Gastro-esophageal reflux disease without esophagitis; G62.9 Polyneuropathy, unspecified; N30.00 Acute cystitis without hematuria

== ENCOUNTER 2025-02-15 07:45 | Outpatient (CLI) | payer MEDICARE, MEDICAID ==
[~2025-02-15] VITALS: Ht 160 cm; Wt 67.0 kg
[~2025-02-15 07:45] MED LIST changes: +ALBUTEROL SULFATE 2.5MG/0.5ML INH CONCENTRATE NEB SOLN INH PRN; +EPINEPHrine INJ 1 MG/ML 1ML AMP IM PRN; +diphenhydrAMINE 50MG/ML VIAL IV PRN; +methylPREDNISolone 125MG 2ML VIAL IV PRN
[2025-02-15 08:20] VITALS: BP 161/81; O2SAT 98
[2025-02-15] MEDS: IRON SUCROSE 300 MG in NS 250 ML IV ONE (08:40)
[2025-02-15 10:20] VITALS: BP 144/88; O2SAT 97
== END 2025-02-15 09:40 | disposition home or self-care (01) ==
LOC: M INFU 07:45
PROVIDERS: ATTEND Nurse Practitioner Family
DX: D50.9 Iron deficiency anemia, unspecified (principal)
CPT/HCPCS: 96365; J1756

== ENCOUNTER 2025-03-10 09:03 | Day surgery (SDC) | payer MEDICARE ==
[~2025-03-10] VITALS: Ht 167.6 cm; Wt 63.0 kg
[~2025-03-10 09:03] MED LIST changes: -ALBUTEROL SULFATE 2.5MG/0.5ML INH CONCENTRATE NEB SOLN INH PRN; -EPINEPHrine INJ 1 MG/ML 1ML AMP IM PRN; +LIDOCAINE 2% 100MG/5ML SDV (FOR ANES.) As Ordered ONE; +SERT25TA21 PO; -diphenhydrAMINE 50MG/ML VIAL IV PRN; -methylPREDNISolone 125MG 2ML VIAL IV PRN; +propofoL 200 MG/20 ML VIAL As Ordered ONE
[2025-03-10 11:06] VITALS: BP 164/95; O2SAT 97
== END 2025-03-10 11:12 | disposition home or self-care (01) ==
LOC: M OPP 09:03
PROVIDERS: ATTEND Surgery
DX: K22.70 Barrett's esophagus without dysplasia (principal); K21.01 Gastro-esophageal reflux disease with esophagitis, with bleeding; K44.9 Diaphragmatic hernia without obstruction or gangrene; R13.10 Dysphagia, unspecified; Z79.899 Other long term (current) drug therapy; Z87.891 Personal history of nicotine dependence

== ENCOUNTER → 2025-07-29 | Outpatient (REF) | payer MEDICARE, OTHER ==
[~2025-07-29] MED LIST changes: +ACYC-438 PO; -ACYC1TAB PO; -LIDOCAINE 2% 100MG/5ML SDV (FOR ANES.) As Ordered ONE; -propofoL 200 MG/20 ML VIAL As Ordered ONE
[2025-07-29 18:14] LABS: PLATELET COUNT, AUTOMATED 265 10^3/uL (150-450)
[2025-07-29 18:22] LABS: IRON (FE) 25.0 UG/DL (50-170); PERCENT SATURATION 5.5 % (13.2-45.0)
[2025-07-29 18:25] LABS: VITAMIN B12 LEVEL 429.0 PG/ML (211-911)
== END ==
LOC: M SFHCCLAY 13:27
PROVIDERS: ATTEND Nurse Practitioner Family
DX: I10 Essential (primary) hypertension (principal); R30.0 Dysuria; D64.9 Anemia, unspecified